=== PATIENT | male | born 1990 | race African-American/Black ===

== ENCOUNTER 2016-06-14 19:06 | Emergency (ER) | payer OTHER ==
[~2016-06-14] VITALS: Ht 177.8 cm; Wt 92.8 kg
[2016-06-14 19:59] LABS: INFLUENZA A VIRAL ANTIGEN NEGATIVE; INFLUENZA B VIRAL ANTIGEN NEGATIVE
[2016-06-14] MEDS ORDERED: MOTRIN800 MG PO (21:47)
[2016-06-14 22:27] VITALS: BP 127/74
== END 2016-06-14 22:28 | disposition home or self-care (01) ==
LOC: EME 19:06
DX: J06.9 Acute upper respiratory infection, unspecified (principal); J02.8 Acute pharyngitis due to other specified organisms
CPT/HCPCS: 87502; 87651 90; 99281; 99283